=== PATIENT | male | born 1950 | race Caucasian/White ===

== ENCOUNTER 2022-10-02 09:14 | Day surgery (SDC) | payer MEDICARE ==
[2022-10-01 11:17] VITALS: BMI 27.9
[2022-10-02] MEDS ORDERED: Midazolam HCl 2 mg/2 ml Vial ONE (11:24)
[2022-10-02] MEDS ORDERED: fentaNYL PF 100 MCG/2 ML SYRINGE ONE (11:24)
[2022-10-02] MEDS ORDERED: Propofol 500 MG/50 ML VIAL ONE (12:41)
[2022-10-02] MEDS ORDERED: Ketamine 50 MG/ML (10ML VIAL) ONE (12:52)
[2022-10-02] MEDS ORDERED: fentaNYL 50 mcg/mL 1 mL Vial ONE (13:59)
== END 2022-10-02 15:10 | disposition home or self-care (01) ==
LOC: SDC/OP 09:14
PROVIDERS: ATTEND Neurological Surgery
DX: M43.10 Spondylolisthesis, site unspecified (principal); M48.061 Spinal stenosis, lumbar region without neurogenic claudication; M51.36 Other intervertebral disc degeneration, lumbar region; M50.30 Other cervical disc degeneration, unspecified cervical region; I25.10 Atherosclerotic heart disease of native coronary artery without angina pectoris; I48.91 Unspecified atrial fibrillation; G45.9 Transient cerebral ischemic attack, unspecified; K21.9 Gastro-esophageal reflux disease without esophagitis; E11.9 Type 2 diabetes mellitus without complications; Z88.2 Allergy status to sulfonamides; Z79.899 Other long term (current) drug therapy
CPT/HCPCS: 72050; 72110; 72141; 72148; J2250; J2704; J3010